=== PATIENT | male | born 1945 | race Caucasian/White ===

== ENCOUNTER 2022-02-07 13:44 | Emergency (ER) | payer MEDICARE, OTHER ==
[~2022-02-07] VITALS: Ht 172.7 cm; Wt 78.0 kg
[2022-02-07] MEDS ORDERED: OMEPRAZOLE20 MG PO (14:12)
[2022-02-07] MEDS ORDERED: LEVOTHYROXINE100 MC2 PO (14:12)
[2022-02-07] MEDS ORDERED: LIPITOR20 MG PO (14:12)
[2022-02-07] MEDS ORDERED: ELIQUIS2.5 MG PO (14:13)
[2022-02-07] MEDS ORDERED: ZESTRIL20 MG PO (14:13)
[2022-02-07] MEDS ORDERED: VITAMIN C500 M1 PO (14:13)
[2022-02-07] MEDS ORDERED: CO Q-10100 MG PO (14:14)
[2022-02-07] MEDS ORDERED: MULTI VITAMIN1 EACH PO (14:14)
[2022-02-07] MEDS ORDERED: PROBIOTIC1 EAC1 PO (14:14)
== END 2022-02-07 15:47 | disposition home or self-care (01) ==
LOC: ED 13:44
DX: M71.21 Synovial cyst of popliteal space [Baker], right knee (principal); I10 Essential (primary) hypertension; E78.00 Pure hypercholesterolemia, unspecified; K21.9 Gastro-esophageal reflux disease without esophagitis; Z79.899 Other long term (current) drug therapy
CPT/HCPCS: 93971; 99283-25